=== PATIENT | male | born 1985 | race Caucasian/White ===

== ENCOUNTER 2020-10-03 02:05 | Emergency (ER) | payer SELFPAY ==
[~2020-10-03] VITALS: Ht 180.3 cm; Wt 102.5 kg
[2020-10-03 02:36] VITALS: BP 126/65
--- NOTE | 2020-10-03 02:40 | NUR ---
PATIENT AMBULATED TO BED 3 WITH STEADY GAIT.
--- NOTE | 2020-10-03 02:43 | NUR ---
PATIENT 35 Y.O. BIB SELF FOR C/O 03/29 EPIGASTRIC PAIN X 3 HOURS. A & O X4. PATIENT REPORTS "THIS USUALLY HAPPENS EVERY NIGHT WHEN I LAY DOWN, BUT TONIGHT IS REALLY BAD." PATIENT REPORTS N/V X 3, DENIES DIARRHEA. PATIENT REPORTS HE TOOK OTC PEPTO-BISMOL WITHOUT RELIEF. ABDOMEN IS SOFT, TENDER TO EPIGASTRIC AREA. BOWEL SOUNDS ACTIVE X4, LAST BM 10/02/20. SKIN IS WARM, DRY AND INTACT. HOB ELEVATED, BED LOCKED AND IN LOWEST POSITION, BED RAIL X1. SEE COMPLETE ASSESSMENT FOR FURTHER DETAILS. MED HX: DENIES ALLERGIES: NKA
--- NOTE | 2020-10-03 02:50 | NUR ---
ERMD AT BEDSIDE.
[2020-10-03] MEDS ORDERED: KETOROLAC 30 MG/ML VIAL IM ONE (02:55)
[2020-10-03] MEDS ORDERED: DICYCLOMINE HCL LIQUID 20 MG, ALUMINUM HYD/MAG/SIMETHICONE 30 ML, LIDOCAINE VISCOUS 2% ... PO ONE ×3 (02:55)
[2020-10-03] MEDS ORDERED: DICYCLOMINE HCL LIQUID 10 MG/5 ML UDC ONE (03:01)
[2020-10-03] MEDS ORDERED: ALUMINUM HYD/MAG/SIMETHICONE 30 ML UDC ONE (03:01)
[2020-10-03] MEDS ORDERED: LIDOCAINE VISCOUS 2% 20 ML UDC ONE (03:01)
[2020-10-03] MEDS ORDERED: MAG-27 PO (04:13)
[2020-10-03] MEDS ORDERED: NAPR-54 PO (04:13)
[2020-10-03 04:30] VITALS: BP 128/79
--- NOTE | 2020-10-03 04:30 | NUR ---
Patient discharged with v/s stable. Written and verbal after care instructions given and explained. Patient alert, oriented and verbalized understanding of instructions. Ambulatory with steady gait. All questions addressed prior to discharge. ID band removed. Patient advised to follow up with PMD. Rx of naproxen; mag hydrox given. Patient educated on indication of medication including possible reaction and side effects. Opportunity to ask questions provided and answered.
== END 2020-10-03 04:30 | disposition home or self-care (01) ==
LOC: MED 02:05
DX: R10.10 Upper abdominal pain, unspecified (principal); K21.9 Gastro-esophageal reflux disease without esophagitis
CPT/HCPCS: 96372; 99283; J1885